=== PATIENT | female | born 1995 | race Caucasian/White ===

== ENCOUNTER 2023-08-19 08:44 | Outpatient (REF) | payer OTHER, SELFPAY ==
[2023-08-19 09:13] LABS: MANUAL DIFF FLAG NO
[2023-08-19 09:49] LABS: Basophils Percent Auto 0.2 % (0-2); Hemoglobin 11.9 g/dl (12.0-16.0); Imm Gran Abs Auto 0.02 X10*3/uL (0.00-0.03); Imm Gran Pct Auto 0.5 % (0.0-0.4); Lymphocytes Absolute Auto 1.5 X10*3/uL (1.2-4.9); Mean Corpuscular HGB Conc 32.2 g/dl (31.0-35.0); Mean Corpuscular Hemoglobin 28.5 pg (27.0-33.0); Mean Corpuscular Volume 88.5 fL (80.0-98.0); Mean Platelet Volume 10.9 fL (9.4-12.3); Monocytes Absolute Auto 0.5 X10*3/uL (0.1-1.2); Monocytes Percent Auto 10.9 % (2-11); Neutrophils Absolute Auto 2.5 x10*3/uL (2.0-8.3); Neutrophils Percent Auto 55.4 % (45-73); Platelet Count 234 X10*3/uL (160-400); Red Blood Count 4.18 X10*6/uL (4.20-5.50); Red Cell Distribution Width 14.6 % (11.0-16.0); White Blood Count 4.4 X10*3/uL (4.8-10.8)
[2023-08-19 09:59] LABS: Estimated Average Glucose 100 mg/dL; Hemoglobin A1c % 5.1 % (<6.0)
[2023-08-19 10:23] LABS: Alanine Aminotransferase 13 U/L (0-31); Albumin Level 4.1 g/dL (3.5-5.0); Alkaline Phosphatase 48 U/L (39-117); Anion Gap 12 (12-20); Aspartate Amino Transferase 17 U/L (5-31); Bilirubin Total 0.3 mg/dL (0.0-1.0); Blood Urea Nitrogen 11 mg/dL (9-16); Calcium 9.1 mg/dL (8.4-10.2); Carbon Dioxide 25 mmol/L (22-29); Chloride 104 mmol/L (96-108); Cholesterol 211 mg/dL (<200); Estimated Glomerular Filt Rate > 60; Glucose Fasting 84 mg/dL (60-99); HDL Cholesterol 78 mg/dL (>40); LDL Cholesterol Calculated 117 mg/dL (<100); Magnesium 2.3 mg/dL (1.6-2.6); Phosphorus 3.2 mg/dL (2.7-4.5); Potassium 4.3 mmol/L (3.3-5.1); Sodium 137 mmol/L (135-145); Total Protein 7.1 g/dL (6.5-8.0); Triglycerides 84 mg/dL (<150)
[2023-08-19 10:40] LABS: Vitamin B12 347 pg/mL (200-900)
[2023-08-19 10:42] LABS: Free T4 (Free Thyroxine) 0.81 ng/dL (0.71-1.85); Thyroid Stimulating Hormone 1.04 uIU/mL (0.32-4.0); Vitamin D 25-OH Total 23.8 ng/mL (>30)
[2023-08-20 07:24] LABS: Prolactin 5.7 ng/mL
[2023-08-20 08:09] LABS: Triiodothyronine T3 Free 3.1 pg/mL (2.3-4.2); Triiodothyronine T3 Total 102 ng/dL (76-181)
== END 2023-08-19 08:45 | disposition home or self-care (01) ==
LOC: HO.LAB 08:44
PROVIDERS: Visit Provider Psychiatry & Neurology Psychiatry
DX: F31.81 Bipolar II disorder (principal)
CPT/HCPCS: 36415; 80053; 80061; 82306; 82607; 83036; 83735; 84100; 84146; 84439; 84443; 84480; 84481; 85025

== ENCOUNTER 2023-08-23 10:30 | Outpatient (RCR) | payer OTHER, SELFPAY ==
[2023-08-13 11:44] VITALS: BP 100/62; PULSE 88; TEMP 37
[2023-08-13 11:48] VITALS: BMI 31.3
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
--- NOTE | 2023-08-13 14:56 | PC.ADMIT ---
Patient is a 27 year old female who was referred to [facility] by her therapist d/t increased sxs of depression and reports of self harming behavior by cutting her hips superficially after many years of no self harming behaviors. She reports having some SI however denied any plans of intent to kill herself. I gave her a copy of her safety plan if needed and I reviewed this plan with her. She reports her mother and friend are supportive. She talked about future plans of wanting to go to graduate school. She holds a degree in Biology from [employer]. She currently working in a marijuana dispensary. She stated she gets free samples to try and gets discounts on products. She is using Marijuana daily in different forms including dabs, bongs, and vaping. She was given education on marijuana use disorder. She believes this is not impacting her life in a negative way currently. She reports financial stresses, trying to keep up with bills, Stated she recently went on a cruise and it cost more than she planned. She is on a debt relief program as a result. 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 Reports symptoms include increased HR, slight dizziness. Requests going to a quiet place such as a closed office where she feels safe. Patent is alert and oriented x4. calm and cooperative. Presented with depressed mood and affect. Medications reconciled with patient and patient's pharmacy. She reports taking medications as prescribed.
--- NOTE | 2023-08-15 17:38 | PHP/IOPCOSI ---
Carmelita?s treatment plan was reviewed by the [facility] clinical staff. Their case has been opened and reviewed.
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
--- NOTE | 2023-08-23 23:56 | HO.PHPPROGNO ---
Subjective Subjective Date of Service: 08/23/23 Reason For Visit: bipolar,anxiety,depression Interim History: Doing good Patient reports doing well. No acute issues or concerns. When asked what has changed, she reports that her mood is better and she feels she is managing stressors better. Just learning some skills I'm implementing at home have been helpful, especially with the depression . She has been participating more in groups this past week and has been focusing on self care at home. Sleep, appetite, energy are intact. She has been compliant with medications, denies any adverse effects. She has been working on expressing her feelings and sitting with them and working through them rather than reacting to them. She denies any SI thoughts this week, denies any thoughts or urges to engage in SIB. 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 However she says that suicidalality, SI and SIB are perennial issues for her and even thought she is doing well now, she knows once she is back dealing with everyday stressors, these issues can becomin more problematic. She thinks it would be helpful to start on the lithium and naltrexone as we had discussed and notes that she has an upcoming appointment with her psych provider Sumit Salamanca on the . We reviewed her recent lab work findings. She is aware of issues with mild anemia and elevated cholesterol and the need to focus on healthy diet and lifestyle changes. She also has mild vit D defiency and was encouraged to take 5000 IU vit D3 po daily. She appears to be tolerating Abilify at 20 mg, prolactin wnl. Medication Compliance: Yes Side effects from medications: No Attending Groups: Yes Review of Systems Acute medical concerns: No Mental Status Exam Mental Status Exam Narrative: Alert, oriented, in no acute distress. Calm, cooperative, engaged. No psychomotor agitation or neurovegetative retardation. Eye contact maintained. Mood euthymic, affect appropriate. Speech normal. Thought process linear, coherent. Thought content related to stressors, future-oriented. She denies hopelessness, SI or HI. No paranoia or delusional content elicited. No evidence of psychosis. Insight and judgment impaired. Diagnostics Vital Signs (24Hr): BMI result Body Mass Index 31.3 Assessment & Plan Assessment & Plan (1) Bipolar II disorder, severe, depressed, with mood-congruent psychotic features, in partial remission: Status: Acute Code(s): F31.81 - Bipolar II disorder Assessment and Plan: in remission (2) Complex posttraumatic stress disorder: Status: Acute Code(s): F43.10 - Post-traumatic stress disorder, unspecified (3) Other mixed anxiety disorders: Status: Acute Code(s): F41.3 - Other mixed anxiety disorders Plan Discharge from [facility] continue on regular medications lithium 150 mg for chronic SI naltrexone 50 mg qd for chronic SIB and urges to self harm will defer further medication management to outpatient provider Has her next psych provider appointment on 08/29 Recent lab work reviewed Patient educated on: diagnosis and medication risk/benefits Informed Consent: understands Reason for contiued partial hosp. stay Substantial Risk for: stable for discharge Certification I certify that partial hospital treatment is medically necessary due to the symptoms and problems resulting from the patient's mental illness and the failure to treat the patient at the partial hospital level of care would likely result in the patient requiring inpatient psychiatric care which could not be prevented at a less intensive level of care. Total time managing care of this patient today __30__ minutes. Discharge Plan Discharge Attending provider: Kathrine Burk Medications: New lithium carbonate 150 mg capsule 150 mg PO BEDTIME Qty: 14 0RF naltrexone 50 mg tablet 50 mg PO DAILY Qty: 14 0RF Continued celecoxib 200 mg capsule 200 mg PO BID lamotrigine 150 mg tablet 150 mg PO BEDTIME trazodone 50 mg tablet 50 mg PO BEDTIME PRN (Reason: insomnia) clonazepam 0.5 mg tablet 0.5 mg PO TID PRN (Reason: Anxiety) venlafaxine 150 mg capsule,extended release 24hr 150 mg PO QAM aripiprazole 20 mg tablet 20 mg PO QAM lamotrigine 100 mg tablet 100 mg PO QAM venlafaxine 75 mg capsule,extended release 24hr 75 mg PO QAM Qty: 14 0RF Rx Instructions: Take with 150 mg capsule. Stand Alone Forms: Patient Portal Discharge page Patient Education: Bipolar Disorder (DC)
== END 2023-08-23 23:59 | disposition home or self-care (01) ==
LOC: HO.PHPA 10:30
PROVIDERS: Visit Provider Psychiatry & Neurology Psychiatry
DX: F31.81 Bipolar II disorder (principal); F43.10 Post-traumatic stress disorder, unspecified; F44.89 Other dissociative and conversion disorders; F41.3 Other mixed anxiety disorders; Z79.899 Other long term (current) drug therapy
CPT/HCPCS: 90791; 90853

== ENCOUNTER → 2023-08-23 10:30 | Outpatient (BNV) | payer OTHER, SELFPAY | PROVIDERS: Visit Provider Psychiatry & Neurology Psychiatry | DX: F31.81 Bipolar II disorder (principal); F43.10 Post-traumatic stress disorder, unspecified; F44.89 Other dissociative and conversion disorders; F41.3 Other mixed anxiety disorders | CPT/HCPCS: 90792; 99213 ==